=== PATIENT | female | born 1980 | race African-American/Black ===

== ENCOUNTER 2017-07-18 21:46 | Emergency (ER) | payer MEDICAID ==
[~2017-07-18] VITALS: Ht 152.4 cm; Wt 56.7 kg
[2017-07-18 21:57] VITALS: BP 112/74
--- NOTE | 2017-07-18 21:58 | NUR ---
PATIENT TO ED DT GLF YESTERDAY WITH CC BULL PAIN AND LEFT SHOULDER, 510, ACHING. PATIENT IS AMBULATORY. VSS
[2017-07-18] MEDS ORDERED: IBUPROFEN 600 MG TABLET PO ONE ×2 (22:30→22:36)
== END 2017-07-19 03:11 | disposition home or self-care (01) ==
LOC: ER 21:54
DX: S00.12XA Contusion of left eyelid and periocular area, initial encounter (principal); S60.221A Contusion of right hand, initial encounter; W11.XXXA Fall on and from ladder, initial encounter; Y93.89 Activity, other specified; Y92.89 Other specified places as the place of occurrence of the external cause; Y99.8 Other external cause status
CPT/HCPCS: 73030; 99284; A4606; Z7610